=== PATIENT | male | born 1945 | race Caucasian/White ===

== ENCOUNTER 2022-12-09 04:18 | Inpatient (IN) | payer MEDICARE ==
[~2022-12-09] VITALS: Ht 165.1 cm; Wt 81.3 kg
[2022-12-09] MEDS ORDERED: NITROGLYCERIN 50 MG/D5% WATER 250 ML IV PRN (04:30)
[2022-12-09] MEDS ORDERED: DEXAMETHASONE SOD PHOS 4 MG/ML VIAL IVP ONE (04:30)
[2022-12-09] MEDS: IPRATROPIUM BROMIDE 0.5 MG/2.5 ML NEB SOLUTION NEB ONE ×2 (04:37→04:51)
[2022-12-09] MEDS: ALBUTEROL SULFATE 2.5 MG/0.5 ML NEB SOLUTION NEB ONE ×2 (04:37→04:52)
[2022-12-09] MEDS ORDERED: FUROSEMIDE 20 MG/2 ML VIAL IVP ONE (04:45)
[2022-12-09] MEDS ORDERED: IPRATROPIUM BROMIDE 0.5 MG/2.5 ML NEB SOLUTION NEB ONE (05:00)
[2022-12-09] MEDS ORDERED: ALBUTEROL SULFATE 2.5 MG/0.5 ML NEB SOLUTION NEB ONE (05:00)
[2022-12-09 05:05] LABS: CREATININE 1.42 mg/dL (0.60-1.30); POTASSIUM 3.5 mmol/L (3.5-5.1)
[2022-12-09 05:07] LABS: BASOPHILS % (AUTO) 0.7 % (0.0-2.0); EOSINOPHILS % (AUTO) 1.8 % (1.0-6.0); HEMATOCRIT 41.9 % (41-53); HEMOGLOBIN 13.5 g/dL (13.5-17.5); LYMPHOCYTES # (AUTO) 12.6 K/uL (1.0-4.8); LYMPHOCYTES % (AUTO) 59.1 % (22.0-44.0); MEAN CORPUSCULAR HEMOGLOBIN 27.4 pg (26.0-34.0); MEAN CORPUSCULAR HGB CONC 32.3 G/dL (31.0-37.0); MEAN CORPUSCULAR VOLUME 85 fL (80-100); MONOCYTES # (AUTO) 1.1 K/uL (0.1-1.0); NEUTROPHILS # (AUTO) 7.1 K/uL (1.8-7.7); NEUTROPHILS % (AUTO) 33.4 % (40.0-70.0); PLATELET COUNT (AUTO) 216 K/uL (150-450); RED BLOOD CELL COUNT(AUTO) 4.93 MIL/uL (4.50-5.90); RED CELL DISTRIBUTION WIDTH 17.1 % (11.5-14.5)
[2022-12-09 05:10] LABS: INR 1.1 (0.9-1.1); PROTHROMBIN TIME 11.4 SEC (9.4-11.6)
[2022-12-09 05:11] LABS: ALBUMIN 3.8 g/dL (3.4-5.0); BILIRUBIN,TOTAL 0.2 mg/dL (0.1-1.0); MAGNESIUM 1.9 mg/dL (1.80-2.40); PHOSPHORUS 5.2 mg/dL (2.5-4.9); TOTAL PROTEIN, SERUM 7.8 g/dL (6.4-8.2)
[2022-12-09 05:21] LABS: COVID AG,FIA SOURCE NASOPHARYNGEAL
[2022-12-09 05:43] LABS: INFLUENZA TYPE A NEGATIVE FOR TYPE A (NEGATIVE); INFLUENZA TYPE B NEGATIVE FOR TYPE B (NEGATIVE)
[2022-12-09] MEDS ORDERED: ACETAMINOPHEN 325 MG TABLET PO PRN ×3 (05:45→09:00)
[2022-12-09] MEDS ORDERED: ONDANSETRON HCL 4 MG/2 ML VIAL IVP PRN ×3 (05:45→09:00)
[2022-12-09] MEDS ORDERED: 0.9% SODIUM CHLORIDE 10 ML SYRINGE IVP PRN (05:45)
[2022-12-09 07:36] LABS: ABG BASE EXCESS -6.7 mmol/L (-2.0-3.0); ABG CARBOXYHEMOGLOBIN 0.1 % (0.0-1.5); ABG HCO3 19.7 mmol/L (22.0-26.0); ABG METHEMOGLOBIN 0.2 % (0.0-1.5); ABG OXYGEN CONTENT 18.4 mL/dL (15.0-23.0); ABG OXYGEN SATURATION 96.7 % (95.0-98.0); ABG OXYHEMOGLOBIN 96.4 % (94.0-100.0); ABG PCO2 34 mmHg (35-45); ABG PH 7.358 (7.35-7.450); ABG TOTAL HEMOGLOBIN 13.5 G/dL (12.0-18.0); PO2, ARTERIAL BG 94.9 mmHg (75.0-83.0); SITE, BLOOD GAS RT BRACHIAL; SOURCE, BLOOD GAS ARTERIAL; TEMPERATURE, FAHRENHEIT, BG 97.7 FAHREN (96.0-98.6)
[2022-12-09 07:37] LABS: O2 DEVICE,BLOOD GAS BIPAP (ROOM AIR); SPONTANEOUS VT, BG 805 ml
[2022-12-09] MEDS ORDERED: ALBUTEROL SULFATE 2.5 MG/0.5 ML NEB SOLUTION NEB PRN (09:00)
[2022-12-09] MEDS ORDERED: FAMOTIDINE 20 MG TABLET PO SCH (09:00)
[2022-12-09] MEDS ORDERED: DOCUSATE SODIUM 100 MG CAPSULE PO SCH (09:00)
[2022-12-09] MEDS ORDERED: DEXTROSE 50%-WATER 25 GM/50 ML SYRINGE IVP PRN (09:00)
[2022-12-09] MEDS: ASPIRIN 81 MG CHEWABLE TABLET PO SCH (09:39)
[2022-12-09] MEDS: FAMOTIDINE 20 MG TABLET PO SCH (09:40)
[2022-12-09] MEDS: DOCUSATE SODIUM 100 MG CAPSULE PO SCH ×2 (09:40→20:59)
[2022-12-09 10:21] LABS: APPEARANCE,URINE CLEAR (CLEAR); BILIRUBIN,URINE NEGATIVE (NEGATIVE); GLUCOSE, URINE (UA) NEGATIVE (NEGATIVE); KETONES,URINE NEGATIVE (NEGATIVE); LEUKOCYTE ESTERASE ,URINE NEGATIVE (NEGATIVE); NITRATE,URINE NEGATIVE (NEGATIVE); OCCULT BLOOD,URINE NEGATIVE (NEGATIVE); PROTEIN,URINE NEGATIVE (NEGATIVE); SPECIFIC GRAVITIY, URINE 1.009 (1.003-1.030); UROBILINOGEN,URINE <=1.0 mg/dL (<=1.0)
[2022-12-09] MEDS ORDERED: *CLINICAL-LEVOFLOXACIN IVPB DOSING CLINICAL ONE (12:00)
[2022-12-09] MEDS ORDERED: HEPARIN SODIUM,PORCINE 5,000 UNITS/ML VIAL IVP PRN ×2 (12:30)
[2022-12-09] MEDS ORDERED: HEPARIN SODIUM,PORCINE 5,000 UNITS/ML VIAL IVP ONE (12:45)
[2022-12-09] MEDS ORDERED: LEVOFLOXACIN 750 MG/D5% WATER 150 ML IV ONE (13:00)
[2022-12-09 13:16] VITALS: BP 140/89
[2022-12-09 14:46] LABS: PROTHROMBIN TIME 10.9 SEC (9.4-11.6)
[2022-12-09] MEDS: METOPROLOL SUCCINATE 25 MG ER TABLET PO SCH ×2 (14:53→20:56)
[2022-12-09 14:57] VITALS: BP 144/89
[2022-12-09] MEDS: HEPARIN SODIUM 25000 UNITS/D5W 250 ML IV PRN ×2 (15:19→23:07)
[2022-12-09] MEDS ORDERED: HEPARIN SODIUM,PORCINE 5,000 UNITS/ML VIAL SQ SCH ×2 (16:00)
[2022-12-09] MEDS: INSULIN LISPRO 100 UNITS/ML SQ PRN (17:27)
[2022-12-09 20:07] VITALS: BP 120/85
[2022-12-09] MEDS: FUROSEMIDE 20 MG/2 ML VIAL IVP SCH (20:59)
[2022-12-09] MEDS: ATORVASTATIN CALCIUM 40 MG TABLET PO SCH (20:59)
[2022-12-10] VITALS (7 sets, daily range): BP systolic 101–133; BP diastolic 50–81
[2022-12-10 05:17] LABS: GLUCOMETER DEV NAME(LOC) 5N.1C; GLUCOSE,POINT OF CARE 228 MG/DL (70-110)
[2022-12-10 06:21] LABS: BASOPHILS % (AUTO) 1.1 % (0.0-2.0); EOSINOPHILS % (AUTO) 1.4 % (1.0-6.0); HEMATOCRIT 36.6 % (41-53); HEMOGLOBIN 12.2 g/dL (13.5-17.5); LYMPHOCYTES # (AUTO) 3.7 K/uL (1.0-4.8); LYMPHOCYTES % (AUTO) 35.3 % (22.0-44.0); MEAN CORPUSCULAR HGB CONC 33.3 G/dL (31.0-37.0); MEAN CORPUSCULAR VOLUME 84 fL (80-100); MONOCYTES # (AUTO) 0.7 K/uL (0.1-1.0); MONOCYTES % (AUTO) 6.5 % (2.0-9.0); NEUTROPHILS # (AUTO) 5.9 K/uL (1.8-7.7); NEUTROPHILS % (AUTO) 55.7 % (40.0-70.0); PLATELET COUNT (AUTO) 152 K/uL (150-450); RED BLOOD CELL COUNT(AUTO) 4.36 MIL/uL (4.50-5.90); RED CELL DISTRIBUTION WIDTH 16.8 % (11.5-14.5)
[2022-12-10 06:39] LABS: ALBUMIN 3.1 g/dL (3.4-5.0); BILIRUBIN,TOTAL 0.2 mg/dL (0.1-1.0); CALCIUM, TOTAL 9.1 mg/dL (8.8-10.5); CREATININE 1.25 mg/dL (0.60-1.30); POTASSIUM 4.2 mmol/L (3.5-5.1); TOTAL PROTEIN, SERUM 6.9 g/dL (6.4-8.2)
[2022-12-10] MEDS ORDERED: NITROGLYCERIN 0.4 MG SUBLINGUAL TABLET #25 SL PRN (08:00)
[2022-12-10] MEDS: DOCUSATE SODIUM 100 MG CAPSULE PO SCH ×2 (08:31→20:45)
[2022-12-10] MEDS: ASPIRIN 81 MG CHEWABLE TABLET PO SCH (08:32)
[2022-12-10] MEDS: FAMOTIDINE 20 MG TABLET PO SCH (08:32)
[2022-12-10] MEDS: METOPROLOL SUCCINATE 25 MG ER TABLET PO SCH (08:32)
[2022-12-10] MEDS: FUROSEMIDE 20 MG/2 ML VIAL IVP SCH ×2 (08:32→20:45)
[2022-12-10 09:01] LABS: GLUCOMETER DEV NAME(LOC) 5S.1B; GLUCOSE,POINT OF CARE 130 MG/DL (70-110)
[2022-12-10] MEDS: HEPARIN SODIUM 25000 UNITS/D5W 250 ML IV PRN (11:28)
[2022-12-10] MEDS: ATORVASTATIN CALCIUM 40 MG TABLET PO SCH (20:44)
[2022-12-10] MEDS: INSULIN LISPRO 100 UNITS/ML SQ PRN (20:45)
[2022-12-11] VITALS (7 sets, daily range): BP systolic 98–111; BP diastolic 55–68
[2022-12-11] MEDS: HEPARIN SODIUM 25000 UNITS/D5W 250 ML IV PRN (04:39)
[2022-12-11 08:18] LABS: CHOL/HDL RATIO 3.3 (4.2-7.3)
[2022-12-11] MEDS: METOPROLOL SUCCINATE 25 MG ER TABLET PO SCH (08:18)
[2022-12-11] MEDS: DOCUSATE SODIUM 100 MG CAPSULE PO SCH ×2 (08:18→20:19)
[2022-12-11] MEDS: ASPIRIN 81 MG CHEWABLE TABLET PO SCH (08:18)
[2022-12-11] MEDS: FAMOTIDINE 20 MG TABLET PO SCH (08:18)
[2022-12-11] MEDS: FUROSEMIDE 20 MG/2 ML VIAL IVP SCH ×2 (08:19→20:19)
[2022-12-11] MEDS: INSULIN LISPRO 100 UNITS/ML SQ PRN ×3 (12:18→20:20)
[2022-12-11] MEDS ORDERED: LEVOFLOXACIN 750 MG/D5% WATER 150 ML IV SCH (13:00)
[2022-12-11] MEDS: ATORVASTATIN CALCIUM 40 MG TABLET PO SCH (20:19)
[2022-12-11 22:21] LABS: GLUCOMETER DEV NAME(LOC) 5S.1B; GLUCOSE,POINT OF CARE 132 MG/DL (70-110)
[2022-12-11 22:21] LABS: GLUCOMETER DEV NAME(LOC) 5S.1B; GLUCOSE,POINT OF CARE 137 MG/DL (70-110)
[2022-12-11 22:21] LABS: GLUCOMETER DEV NAME(LOC) 5S.1B; GLUCOSE,POINT OF CARE 183 MG/DL (70-110)
[2022-12-11 22:21] LABS: GLUCOMETER DEV NAME(LOC) 5S.1B; GLUCOSE,POINT OF CARE 152 MG/DL (70-110)
[2022-12-11 22:21] LABS: GLUCOMETER DEV NAME(LOC) 5S.1B; GLUCOSE,POINT OF CARE 195 MG/DL (70-110)
[2022-12-11 22:21] LABS: GLUCOMETER DEV NAME(LOC) 5S.1B; GLUCOSE,POINT OF CARE 157 MG/DL (70-110)
[2022-12-11 22:21] LABS: GLUCOMETER DEV NAME(LOC) 5S.1B; GLUCOSE,POINT OF CARE 219 MG/DL (70-110)
[2022-12-12] VITALS (13 sets, daily range): BP systolic 102–154; BP diastolic 52–102
[2022-12-12] MEDS: INSULIN LISPRO 100 UNITS/ML SQ PRN ×2 (06:00→18:00)
[2022-12-12 06:18] LABS: BASOPHILS % (AUTO) 0.8 % (0.0-2.0); EOSINOPHILS % (AUTO) 1.5 % (1.0-6.0); HEMATOCRIT 38.4 % (41-53); HEMOGLOBIN 12.7 g/dL (13.5-17.5); LYMPHOCYTES # (AUTO) 3.3 K/uL (1.0-4.8); LYMPHOCYTES % (AUTO) 31.4 % (22.0-44.0); MEAN CORPUSCULAR HEMOGLOBIN 27.4 pg (26.0-34.0); MEAN CORPUSCULAR HGB CONC 33.2 G/dL (31.0-37.0); MEAN CORPUSCULAR VOLUME 83 fL (80-100); MONOCYTES # (AUTO) 0.7 K/uL (0.1-1.0); MONOCYTES % (AUTO) 6.8 % (2.0-9.0); NEUTROPHILS # (AUTO) 6.3 K/uL (1.8-7.7); NEUTROPHILS % (AUTO) 59.5 % (40.0-70.0); PLATELET COUNT (AUTO) 163 K/uL (150-450); RED BLOOD CELL COUNT(AUTO) 4.65 MIL/uL (4.50-5.90); RED CELL DISTRIBUTION WIDTH 17.2 % (11.5-14.5)
[2022-12-12 06:54] LABS: CALCIUM, TOTAL 8.6 mg/dL (8.8-10.5); CREATININE 1.96 mg/dL (0.60-1.30)
[2022-12-12] MEDS ORDERED: IOHEXOL 300 MG/ML 100 ML VIAL ONE (08:08)
[2022-12-12] MEDS ORDERED: IOHEXOL 300 MG/ML 50 ML VIAL ONE ×2 (08:08→09:25)
[2022-12-12] MEDS ORDERED: SODIUM BICARBONATE 50 MEQ/50 ML VIAL ONE (08:08)
[2022-12-12] MEDS ORDERED: HEPARIN SODIUM 1000 UNITS/NS 1,000 ML ONE (08:08)
[2022-12-12] MEDS ORDERED: LIDOCAINE/PF 1% 30 ML VIAL ONE (08:08)
[2022-12-12] MEDS: FAMOTIDINE 20 MG TABLET PO SCH (08:27)
[2022-12-12] MEDS: DOCUSATE SODIUM 100 MG CAPSULE PO SCH ×2 (08:27→20:04)
[2022-12-12] MEDS: METOPROLOL SUCCINATE 25 MG ER TABLET PO SCH (08:27)
[2022-12-12] MEDS: FUROSEMIDE 20 MG/2 ML VIAL IVP SCH ×2 (08:27→20:04)
[2022-12-12] MEDS: ASPIRIN 81 MG CHEWABLE TABLET PO SCH (08:27)
[2022-12-12] MEDS ORDERED: FentaNYL CITRATE PF 100 MCG/2 ML VIAL ONE (08:56)
[2022-12-12] MEDS ORDERED: MIDAZOLAM HCL 2 MG/2 ML VIAL ONE (08:56)
[2022-12-12] MEDS ORDERED: LIDOCAINE 1% 30 ML/SOD BICARB 8.4% 4 ML SQ ONE (09:30)
[2022-12-12] MEDS ORDERED: HEPARIN SODIUM 1000 UNITS/NS 1,000 ML IARTER ONE (09:30)
[2022-12-12] MEDS ORDERED: IOHEXOL 300 MG/ML 100 ML VIAL IARTER ONE (09:30)
[2022-12-12] MEDS ORDERED: HEPARIN SODIUM,PORCINE 1,000 UNITS/ML 10 ML VIAL IVP ONE (09:30)
[2022-12-12] MEDS ORDERED: ADENOSINE 3 MG/ML 2 ML VIAL ONE (09:32)
[2022-12-12] MEDS ORDERED: SODIUM CHLORIDE 0.9% 500 ML IV ONE (09:45)
[2022-12-12] MEDS ORDERED: SODIUM CHLORIDE 0.9% 1,000 ML IV SCH (10:15)
[2022-12-12 17:01] LABS: GLUCOMETER DEV NAME(LOC) 5S.1B; GLUCOSE,POINT OF CARE 172 MG/DL (70-110)
[2022-12-12 17:01] LABS: GLUCOMETER DEV NAME(LOC) 5S.1B; GLUCOSE,POINT OF CARE 188 MG/DL (70-110)
[2022-12-12 17:01] LABS: GLUCOMETER DEV NAME(LOC) 5S.1B; GLUCOSE,POINT OF CARE 167 MG/DL (70-110)
[2022-12-12] MEDS: HEPARIN SODIUM,PORCINE 5,000 UNITS/ML VIAL SQ SCH ×2 (17:58→23:21)
[2022-12-12] MEDS: ATORVASTATIN CALCIUM 40 MG TABLET PO SCH (20:04)
[2022-12-12 20:51] LABS: GLUCOMETER DEV NAME(LOC) 5S.1B; GLUCOSE,POINT OF CARE 214 MG/DL (70-110)
[2022-12-13 00:22] VITALS: BP 125/74
[2022-12-13 03:06] LABS: HEPATITIS C AB (EIA) Non Reactive (Non Reactive)
[2022-12-13 03:54] VITALS: BP 130/79
[2022-12-13 07:05] VITALS: BP 133/80
[2022-12-13] MEDS: FUROSEMIDE 20 MG/2 ML VIAL IVP SCH (08:25)
[2022-12-13] MEDS: ASPIRIN 81 MG CHEWABLE TABLET PO SCH (08:25)
[2022-12-13] MEDS: DOCUSATE SODIUM 100 MG CAPSULE PO SCH (08:25)
[2022-12-13] MEDS: HEPARIN SODIUM,PORCINE 5,000 UNITS/ML VIAL SQ SCH (08:25)
[2022-12-13] MEDS: METOPROLOL SUCCINATE 25 MG ER TABLET PO SCH (08:26)
[2022-12-13] MEDS: FAMOTIDINE 20 MG TABLET PO SCH (08:26)
[2022-12-13 09:49] LABS: BASOPHILS % (AUTO) 0.4 % (0.0-2.0); EOSINOPHILS % (AUTO) 0.8 % (1.0-6.0); HEMATOCRIT 37.4 % (41-53); HEMOGLOBIN 12.2 g/dL (13.5-17.5); LYMPHOCYTES # (AUTO) 2.5 K/uL (1.0-4.8); LYMPHOCYTES % (AUTO) 22.2 % (22.0-44.0); MEAN CORPUSCULAR HEMOGLOBIN 27.1 pg (26.0-34.0); MEAN CORPUSCULAR HGB CONC 32.7 G/dL (31.0-37.0); MEAN CORPUSCULAR VOLUME 83 fL (80-100); MONOCYTES # (AUTO) 0.8 K/uL (0.1-1.0); MONOCYTES % (AUTO) 6.8 % (2.0-9.0); NEUTROPHILS # (AUTO) 7.7 K/uL (1.8-7.7); NEUTROPHILS % (AUTO) 69.8 % (40.0-70.0); PLATELET COUNT (AUTO) 180 K/uL (150-450); RED BLOOD CELL COUNT(AUTO) 4.52 MIL/uL (4.50-5.90); RED CELL DISTRIBUTION WIDTH 16.9 % (11.5-14.5)
[2022-12-13 09:57] LABS: CALCIUM, TOTAL 8.9 mg/dL (8.8-10.5); CREATININE 1.73 mg/dL (0.60-1.30); POTASSIUM 4.2 mmol/L (3.5-5.1)
[2022-12-13 10:03] LABS: ALBUMIN 3.4 g/dL (3.4-5.0); BILIRUBIN,TOTAL 0.3 mg/dL (0.1-1.0); TOTAL PROTEIN, SERUM 7.1 g/dL (6.4-8.2)
[2022-12-13 11:19] VITALS: BP 130/72
[2022-12-13] MEDS ORDERED: ASPI81 PO (11:25)
[2022-12-13] MEDS ORDERED: ATOR40TA71 PO (11:25)
[2022-12-13] MEDS ORDERED: METO25XL PO (11:25)
[2022-12-13] MEDS ORDERED: FURO20 PO ×2 (11:25→13:05)
[2022-12-13] MEDS: INSULIN LISPRO 100 UNITS/ML SQ PRN (12:14)
[2022-12-13 19:52] LABS: GLUCOMETER DEV NAME(LOC) 5S.1B; GLUCOSE,POINT OF CARE 224 MG/DL (70-110)
[2022-12-13 19:52] LABS: GLUCOMETER DEV NAME(LOC) 5S.1B; GLUCOSE,POINT OF CARE 250 MG/DL (70-110)
== END 2022-12-13 13:50 | disposition home or self-care (01) | DRG 280 ==
LOC: EMS 04:21 → 5N 10:47 → EDBD 10:47
PROVIDERS: ADMIT Hospitalist; ATTEND Hospitalist
PROC: 5A09357 Assistance with Respiratory Ventilation, Less than 24 Consecutive Hours, Continuous Positive Airway Pressure (ICD-10-PCS; principal; 2022-12-09)
PROC: 4A023N7 Measurement of Cardiac Sampling and Pressure, Left Heart, Percutaneous Approach (ICD-10-PCS; 2022-12-12)
PROC: B2111ZZ Fluoroscopy of Multiple Coronary Arteries using Low Osmolar Contrast (ICD-10-PCS; 2022-12-12)
DX: I11.0 Hypertensive heart disease with heart failure (principal); I50.23 Acute on chronic systolic (congestive) heart failure; I21.4 Non-ST elevation (NSTEMI) myocardial infarction; J96.01 Acute respiratory failure with hypoxia; N17.0 Acute kidney failure with tubular necrosis; I16.1 Hypertensive emergency; R65.10 Systemic inflammatory response syndrome (SIRS) of non-infectious origin without acute organ dysfunction; J44.9 Chronic obstructive pulmonary disease, unspecified; E78.5 Hyperlipidemia, unspecified; E11.9 Type 2 diabetes mellitus without complications; T50.8X5A Adverse effect of diagnostic agents, initial encounter; I25.10 Atherosclerotic heart disease of native coronary artery without angina pectoris; I25.5 Ischemic cardiomyopathy; D72.829 Elevated white blood cell count, unspecified; Z20.822 Contact with and (suspected) exposure to COVID-19; Z79.82 Long term (current) use of aspirin; Z79.899 Other long term (current) drug therapy; Z82.49 Family history of ischemic heart disease and other diseases of the circulatory system; Z87.891 Personal history of nicotine dependence; Z88.0 Allergy status to penicillin
CPT/HCPCS: 0501T; 36600; 71045; 80048; 80053; 80061; 81003; 82550; 82805; 82962; 83735; 83880; 84100; 84145; 84484; 85025; 85610; 85730; 86709; 86803; 87340; 87804; 93005; 93306; 94640; 94660; 99291; J0153; J1100; J1644; J1940; J1956; J2250; J3010; J3490; Q9967; 36415-L1; 36415-TC; J7613

== ENCOUNTER 2025-06-06 02:24 | Inpatient (IN) | payer MEDICARE ==
[~2025-06-06] VITALS: Ht 165.1 cm; Wt 91.7 kg
[2025-06-06] VITALS (10 sets, daily range): BP systolic 91–106; BP diastolic 25–48; PULSE 100–134; RESP 16–35; TEMP 98.3–103.9; O2SAT 84–96
[~2025-06-06 02:24] MED LIST: ASPI-1444 PO; DOCU-385 PO; DULA1.5P SQ; EMPA25TA3 PO; FURO20TA4 PO; LISI-1024 PO; METF-446 PO; NIFE-129 PO; OMEP20CA12 PO
[2025-06-06 02:52] LABS: PLATELET COUNT (AUTO) 195 K/uL (150-450); RED BLOOD CELL COUNT(AUTO) 5.23 MIL/uL (4.50-5.90); RED CELL DISTRIBUTION WIDTH 14.8 % (11.5-14.5); WHITE BLOOD COUNT (AUTO) 5.4 K/uL (4.5-11.0)
[2025-06-06 03:07] LABS: CALCIUM, TOTAL 8.5 mg/dL (8.8-10.5); CREATININE 2.42 mg/dL (0.60-1.30); GLOMERULAR FILTR. RATE CALC 26 mL/min (>60); GLUCOSE,RANDOM 279 mg/dL (70-110); SODIUM SERUM 134 mmol/L (136-145); UREA NITROGEN, BLOOD 44 mg/dL (7-18)
[2025-06-06] MEDS: SODIUM CHLORIDE 0.9% 1,000 ML IV ONE (03:16)
[2025-06-06 03:17] LABS: TROPONIN I-HIGH SENSITIVITY 46 ng/L (<76)
[2025-06-06 03:51] LABS: LACTIC ACID 5.5 mmol/L (0.4-2.0)
[2025-06-06] MEDS ORDERED: 0.9% SODIUM CHLORIDE 10 ML SYRINGE IVP PRN (04:00)
[2025-06-06] MEDS ORDERED: PIPERACILLIN/TAZO 3.375 GM/D5W 50 ML IV ONE (04:00)
[2025-06-06 04:13] LABS: ASPARTATE AMINOTRANSFERASE 21.0 U/L (15-37); CREATINE KINASE, TOTAL ONLY 206.0 U/L (39-308); TOTAL PROTEIN, SERUM 7.1 g/dL (6.4-8.2)
[2025-06-06] MEDS: SODIUM CHLORIDE 0.9% 1,650 ML IV ONE (04:13)
[2025-06-06] MEDS: CefTRIAXone 1 GM/DEXTROSE 50 ML IV ONE (04:23)
[2025-06-06] MEDS: MORPHINE SULFATE 2 MG/ML SYRINGE IVP ONE (07:26)
[2025-06-06 07:51] LABS: ABG A-A DIFF O2 617.4 mmHg (10-20.0); ABG BASE EXCESS -3.7 mmol/L (-2.0-3.0); ABG CARBOXYHEMOGLOBIN 1.2 % (0.5-1.5); ABG HCO3 22.5 mmol/L (21.0-28.0); ABG METHEMOGLOBIN 1.0 % (0.0-1.5); ABG OXYGEN CONTENT 18.2 mL/dL (15.0-23.0); ABG OXYGEN SATURATION 93.7 % (94.0-98.0); ABG OXYHEMOGLOBIN 91.6 % (94.0-98.0); ABG PCO2 28 mmHg (32.0-48.0); ABG PH 7.476 (7.350-7.450); ABG TOTAL HEMOGLOBIN 14.1 G/dL (13.5-17.5); ALLEN TEST, BLOOD GAS Positive; FLOW, BLOOD GAS 15.00 L/min (0.00-15.00); FRACTIONATED INSPIRED OXYGEN 100.0 % (21-100.0); O2 DEVICE,BLOOD GAS NON REBREATHER (ROOM AIR); PO2, ARTERIAL BG 68.1 mmHg (83.0-108.0); SITE, BLOOD GAS RT RADIAL; SOURCE, BLOOD GAS ARTERIAL; TEMPERATURE, FAHRENHEIT, BG 98.6 FAHREN (96.0-98.6)
[2025-06-06] MEDS ORDERED: SODIUM CHLORIDE 0.9% 500 ML IV ONE (07:58)
[2025-06-06] MEDS ORDERED: NOREPINEPHRINE 8 MG/0.9 % NACL 250 ML IV ONE (07:58)
[2025-06-06] MEDS: SODIUM CHLORIDE 0.9% 500 ML IV ONE (08:05)
[2025-06-06 08:18] LABS: CALCIUM, TOTAL 8.2 mg/dL (8.8-10.5); CREATININE 3.18 mg/dL (0.60-1.30); GLOMERULAR FILTR. RATE CALC 19.0 mL/min (>60); GLUCOSE,RANDOM 281.0 mg/dL (70-110); SODIUM SERUM 133.0 mmol/L (136-145); UREA NITROGEN, BLOOD 50.0 mg/dL (7-18)
[2025-06-06] MEDS: NOREPINEPHRINE 8 MG/0.9 % NACL 250 ML IV PRN (08:23)
[2025-06-06] MEDS: VANCOMYCIN 1.25 GM/WATER(PEG) 250 ML IV ONE (09:00)
[2025-06-06] MEDS ORDERED: ETOMIDATE 2 MG/ML 10 ML VIAL ONE (09:43)
[2025-06-06] MEDS ORDERED: ROCURONIUM BROMIDE 10 MG/ML 5 ML VIAL ONE (09:43)
[2025-06-06 10:35] LABS: APPEARANCE,URINE HAZY (CLEAR); GLUCOSE, URINE (UA) >=1000 mg/dL (NEGATIVE); LEUKOCYTE ESTERASE ,URINE SMALL (NEGATIVE); NITRATE,URINE NEGATIVE (NEGATIVE); OCCULT BLOOD,URINE NEGATIVE (NEGATIVE); SPECIFIC GRAVITIY, URINE 1.021 (1.003-1.030)
[2025-06-06 10:43] LABS: SQUAMOUS EPITHELIAL CELL,UR Moderate /LPF (None Seen)
[2025-06-06] MEDS ORDERED: BISACODYL 10 MG RECTAL RECTAL SUPPOSITORY PR PRN (11:00)
[2025-06-06] MEDS ORDERED: HYDROCODONE/ACETAMINOPHEN 5-325 MG TABLET PO PRN (11:00)
[2025-06-06] MEDS ORDERED: ONDANSETRON HCL 4 MG/2 ML VIAL IVP PRN (11:00)
[2025-06-06] MEDS ORDERED: ZOLPIDEM TARTRATE 5 MG TABLET PO PRN (11:00)
[2025-06-06] MEDS ORDERED: MORPHINE SULFATE 2 MG/ML SYRINGE IVP PRN (11:00)
[2025-06-06] MEDS ORDERED: MAGNESIUM HYDROXIDE SUSPENSION 30 ML UDCUP PO PRN (11:00)
[2025-06-06] MEDS: *CLINICAL-LEVOFLOXACIN IVPB DOSING CLINICAL ONE (11:17)
[2025-06-06] MEDS: KETAMINE HCL 500 MG in DEXTROSE 5%-WATER 490 ML IV PRN (11:21)
[2025-06-06] MEDS: MINERAL OIL 133 ML ENEMA PR ONE (12:24)
[2025-06-06] MEDS: RINGERS SOLUTION,LACTATED 1,000 ML IV ONE (12:27)
[2025-06-06] MEDS: CLINDAMYCIN 600 MG/D5% WATER 50 ML IV SCH (12:28)
[2025-06-06 13:08] LABS: ABG BASE EXCESS -4.4 mmol/L (-2.0-3.0); ABG CARBOXYHEMOGLOBIN 0.6 % (0.5-1.5); ABG HCO3 20.1 mmol/L (21.0-28.0); ABG METHEMOGLOBIN 0.2 % (0.0-1.5); ABG OXYGEN CONTENT 18.6 mL/dL (15.0-23.0); ABG OXYGEN SATURATION 92.5 % (94.0-98.0); ABG OXYHEMOGLOBIN 91.8 % (94.0-98.0); ABG PCO2 58 mmHg (32.0-48.0); ABG TOTAL HEMOGLOBIN 14.4 G/dL (13.5-17.5); FRACTIONATED INSPIRED OXYGEN 100.0 % (21-100.0); PO2, ARTERIAL BG 78.3 mmHg (83.0-108.0); SOURCE, BLOOD GAS ARTERIAL; TEMPERATURE, FAHRENHEIT, BG 98.6 FAHREN (96.0-98.6)
[2025-06-06 13:11] LABS: ABG A-A DIFF O2 576.8 mmHg (10-20.0); ABG PH 7.222 (7.350-7.450); ALLEN TEST, BLOOD GAS Positive; O2 DEVICE,BLOOD GAS VENTILATOR (ROOM AIR); PATIENT RATE, BG 16.0 min.; PEEP,BG 8 cm H2O; SET RATE, BG 16.0 min.; SITE, BLOOD GAS RT RADIAL; VT, ABG 500 ml
[2025-06-06] MEDS: LEVOFLOXACIN 500 MG/D5% WATER 100 ML IV ONE (14:18)
[2025-06-06] MEDS ORDERED: DEXTROSE 50%-WATER 25 GM/50 ML SYRINGE IVP PRN (14:30)
[2025-06-06] MEDS ORDERED: PROPOFOL 1000 MG/ISO-OSM 100 ML ONE (14:37)
[2025-06-06] MEDS: INSULIN LISPRO 100 UNITS/ML SQ PRN (14:41)
[2025-06-06 16:21] LABS: ABG BASE EXCESS -7.4 mmol/L (-2.0-3.0); ABG CARBOXYHEMOGLOBIN 0.4 % (0.5-1.5); ABG HCO3 19.0 mmol/L (21.0-28.0); ABG METHEMOGLOBIN 0.2 % (0.0-1.5); ABG OXYGEN CONTENT 17.3 mL/dL (15.0-23.0); ABG OXYGEN SATURATION 88.1 % (94.0-98.0); ABG OXYHEMOGLOBIN 87.6 % (94.0-98.0); ABG PCO2 35 mmHg (32.0-48.0); ABG PH 7.340 (7.350-7.450); ABG TOTAL HEMOGLOBIN 14.1 G/dL (13.5-17.5); FRACTIONATED INSPIRED OXYGEN 100.0 % (21-100.0); PO2, ARTERIAL BG 57.2 mmHg (83.0-108.0); SOURCE, BLOOD GAS ARTERIAL; TEMPERATURE, FAHRENHEIT, BG 98.6 FAHREN (96.0-98.6)
[2025-06-06 16:22] LABS: ABG A-A DIFF O2 621.0 mmHg (10-20.0); O2 DEVICE,BLOOD GAS VENTILATOR (ROOM AIR); PATIENT RATE, BG 34.0 min.; PEEP,BG 8 cm H2O; SET RATE, BG 26.0 min.; SITE, BLOOD GAS LFT BRACHIAL; VT, ABG 520 ml
[2025-06-06] MEDS: HEPARIN SODIUM,PORCINE 5,000 UNITS/ML VIAL SQ SCH (16:23)
[2025-06-06] MEDS: PHENYLEPHRINE 200 MG/D5%-WATER 250 ML IV PRN (17:27)
[2025-06-06 17:29] LABS: ABG BASE EXCESS -5.4 mmol/L (-2.0-3.0); ABG CARBOXYHEMOGLOBIN 0.5 % (0.5-1.5); ABG HCO3 20.7 mmol/L (21.0-28.0); ABG METHEMOGLOBIN 0.2 % (0.0-1.5); ABG OXYGEN CONTENT 15.9 mL/dL (15.0-23.0); ABG OXYHEMOGLOBIN 83.8 % (94.0-98.0); ABG PCO2 31 mmHg (32.0-48.0); ABG PH 7.412 (7.350-7.450); ABG TOTAL HEMOGLOBIN 13.5 G/dL (13.5-17.5); FRACTIONATED INSPIRED OXYGEN 100.0 % (21-100.0); SOURCE, BLOOD GAS ARTERIAL; TEMPERATURE, FAHRENHEIT, BG 98.6 FAHREN (96.0-98.6)
[2025-06-06 17:31] LABS: ABG OXYGEN SATURATION 84.4 % (94.0-98.0); PO2, ARTERIAL BG 47.5 mmHg (83.0-108.0); SITE, BLOOD GAS ARTERIAL LINE
[2025-06-06 17:32] LABS: ABG A-A DIFF O2 634.6 mmHg (10-20.0); O2 DEVICE,BLOOD GAS VENTILATOR (ROOM AIR); PATIENT RATE, BG 26.0 min.; PEEP,BG 8 cm H2O; SET RATE, BG 26.0 min.; VT, ABG 520 ml
[2025-06-06 18:44] LABS: CALCIUM, TOTAL 7.7 mg/dL (8.8-10.5); CREATININE 3.79 mg/dL (0.60-1.30); GLOMERULAR FILTR. RATE CALC 15.0 mL/min (>60); GLUCOSE,RANDOM 241.0 mg/dL (70-110); SODIUM SERUM 135.0 mmol/L (136-145); UREA NITROGEN, BLOOD 57.0 mg/dL (7-18)
[2025-06-06 18:48] LABS: PHOSPHORUS 4.4 mg/dL (2.5-4.9)
[2025-06-06] MEDS: PROPOFOL 1000 MG/ISO-OSM 100 ML IV PRN (19:52)
[2025-06-06] MEDS: FentaNYL CIT 1000MCG/0.9% NACL 100 ML IV PRN (19:53)
[2025-06-06 20:07] LABS: ABG BASE EXCESS -5.0 mmol/L (-2.0-3.0); ABG CARBOXYHEMOGLOBIN 0.7 % (0.5-1.5); ABG HCO3 21.0 mmol/L (21.0-28.0); ABG METHEMOGLOBIN 1.2 % (0.0-1.5); ABG OXYGEN CONTENT 18.5 mL/dL (15.0-23.0); ABG OXYGEN SATURATION 92.0 % (94.0-98.0); ABG OXYHEMOGLOBIN 90.3 % (94.0-98.0); ABG PCO2 38 mmHg (32.0-48.0); ABG PH 7.352 (7.350-7.450); ABG TOTAL HEMOGLOBIN 14.6 G/dL (13.5-17.5); FRACTIONATED INSPIRED OXYGEN 100.0 % (21-100.0); PO2, ARTERIAL BG 74.5 mmHg (83.0-108.0); SOURCE, BLOOD GAS ARTERIAL; TEMPERATURE, FAHRENHEIT, BG 103.9 FAHREN (96.0-98.6)
[2025-06-06 20:08] LABS: ABG A-A DIFF O2 529.3 mmHg (10-20.0); O2 DEVICE,BLOOD GAS VENT (ROOM AIR); PEEP,BG 10 cm H2O; SET RATE, BG 26.0 min.; SITE, BLOOD GAS ARTERIAL LINE; VT, ABG 520 ml
[2025-06-06] MEDS ORDERED: SODIUM CHLORIDE 0.9% 2,000 ML ONE (20:26)
[2025-06-06] MEDS: DOCUSATE SODIUM 100 MG CAPSULE PO SCH (20:43)
[2025-06-06] MEDS: ACETAMINOPHEN 325 MG TABLET PO PRN (21:34)
[2025-06-06] MEDS: VASOPRESSIN 40 UNITS in DEXTROSE 5%-WATER 98 ML IV PRN (21:35)
[2025-06-07] VITALS (16 sets, daily range): BP systolic 92–134; BP diastolic 42–59; PULSE 77–111; RESP 21–26; TEMP 97.1–101.7; O2SAT 90–98
[2025-06-07] MEDS ORDERED: VANCOMYCIN 1GM/WATER(PEG/NADA) 200 ML IV PRN (01:45)
[2025-06-07] MEDS ORDERED: SODIUM CHLORIDE 0.9% 2,000 ML ONE (03:22)
[2025-06-07] MEDS: POTASSIUM CHLORIDE 20 MEQ in NXSTAGE RFP-402 K0/CA3 5,000 ML IRRIG PRN (03:45)
[2025-06-07 06:35] LABS: RED BLOOD CELL COUNT(AUTO) 4.54 MIL/uL (4.50-5.90); RED CELL DISTRIBUTION WIDTH 15.0 % (11.5-14.5); WHITE BLOOD COUNT (AUTO) 14.5 K/uL (4.5-11.0)
[2025-06-07 06:41] LABS: GLUCOMETER DEV NAME(LOC) ICUN.6; GLUCOSE,POINT OF CARE 195 MG/DL (70-110)
[2025-06-07 06:52] LABS: ASPARTATE AMINOTRANSFERASE 51.0 U/L (15-37); CALCIUM, TOTAL 7.6 mg/dL (8.8-10.5); CREATININE 3.41 mg/dL (0.60-1.30); GLOMERULAR FILTR. RATE CALC 17.0 mL/min (>60); GLUCOSE,RANDOM 214.0 mg/dL (70-110); SODIUM SERUM 136.0 mmol/L (136-145); TOTAL PROTEIN, SERUM 5.5 g/dL (6.4-8.2); UREA NITROGEN, BLOOD 51.0 mg/dL (7-18)
[2025-06-07 07:50] LABS: PLATELET COUNT (AUTO) 98 K/uL (150-450)
[2025-06-07 07:50] LABS: GLUCOMETER DEV NAME(LOC) ICU.S7; GLUCOSE,POINT OF CARE 261 MG/DL (70-110)
[2025-06-07 07:59] LABS: BAND NEUTROPHILS % (MANUAL) 12 % (0-5); LYMPHOCYTES % (MANUAL) 5 % (22-44); METAMYELOCYTES % 10 % (0-0); MONOCYTES % (MANUAL) 1 % (2-9); MYELOCYTES % 6 % (0-0); SEGMENTED NEUTROPHILS % 66 % (40-70); WBC MORPHOLOGY TOXIC GRANULATION
[2025-06-07] MEDS ORDERED: PANTOPRAZOLE SODIUM 40 MG DR TABLET PO SCH (09:00)
[2025-06-07 09:56] LABS: GLUCOMETER DEV NAME(LOC) ICUN.6; GLUCOSE,POINT OF CARE 207 MG/DL (70-110)
[2025-06-07] MEDS: HEPARIN SODIUM,PORCINE 1,000 UNITS/ML VIAL IVCATH ONE (11:45)
[2025-06-07] MEDS ORDERED: SODIUM CHLORIDE 0.9% 1,000 ML ONE (11:47)
[2025-06-07] MEDS: VANCOMYCIN 1.5 GM/WATER(PEG) 300 ML IV ONE (11:51)
[2025-06-07] MEDS: PANTOPRAZOLE SODIUM 40 MG/VIAL IVP SCH (11:51)
[2025-06-07 12:54] LABS: ABG BASE EXCESS -9.9 mmol/L (-2.0-3.0); ABG CARBOXYHEMOGLOBIN 0.4 % (0.5-1.5); ABG HCO3 17.5 mmol/L (21.0-28.0); ABG METHEMOGLOBIN 0.3 % (0.0-1.5); ABG OXYGEN CONTENT 20.7 mL/dL (15.0-23.0); ABG OXYGEN SATURATION 97.8 % (94.0-98.0); ABG OXYHEMOGLOBIN 97.1 % (94.0-98.0); ABG PCO2 37 mmHg (32.0-48.0); ABG PH 7.276 (7.350-7.450); ABG TOTAL HEMOGLOBIN 15.1 G/dL (13.5-17.5); FRACTIONATED INSPIRED OXYGEN 100.0 % (21-100.0); PO2, ARTERIAL BG 116.8 mmHg (83.0-108.0); SOURCE, BLOOD GAS ARTERIAL; TEMPERATURE, FAHRENHEIT, BG 101.1 FAHREN (96.0-98.6)
[2025-06-07 12:56] LABS: SITE, BLOOD GAS ALINE
[2025-06-07 12:57] LABS: O2 DEVICE,BLOOD GAS VENTILATOR (ROOM AIR); PATIENT RATE, BG 26.0 min.; PEEP,BG 10 cm H2O; SET RATE, BG 26.0 min.; VT, ABG 520 ml
[2025-06-07] MEDS: HYDROCORTISONE SOD SUCC 100 MG/2 ML VIAL IVP SCH (15:04)
[2025-06-07] MEDS ORDERED: SODIUM CHLORIDE 0.9% 250 ML IV ONE (18:23)
[2025-06-07] MEDS: POTASSIUM CHLORIDE 15 MEQ in NXSTAGE RFP-402 K0/CA3 5,000 ML IRRIG PRN (18:27)
[2025-06-07 19:21] LABS: CALCIUM, TOTAL 7.0 mg/dL (8.8-10.5); CREATININE 2.76 mg/dL (0.60-1.30); GLOMERULAR FILTR. RATE CALC 22.0 mL/min (>60); GLUCOSE,RANDOM 211.0 mg/dL (70-110); SODIUM SERUM 133.0 mmol/L (136-145); UREA NITROGEN, BLOOD 47.0 mg/dL (7-18)
[2025-06-07 19:34] LABS: PHOSPHORUS 5.0 mg/dL (2.5-4.9)
[2025-06-07] MEDS: CISATRACURIUM BESYLATE 100 MG in DEXTROSE 5%-WATER 240 ML IV PRN (20:46)
[2025-06-07] MEDS: DOCUSATE SODIUM 100 MG/10 ML LIQUID UDCUP NG SCH (21:00)
[2025-06-08] VITALS (16 sets, daily range): BP systolic 10–146; BP diastolic 50–75; PULSE 48–102; RESP 21–26; TEMP 92–95.4; O2SAT 89–100
[2025-06-08] MEDS: ETHYL ALCOHOL 62% ANTISEPTIC NASAL SANITIZER 0.6 ML AMPUL NASAL SCH (00:34)
[2025-06-08 00:54] LABS: CALCIUM, TOTAL 7.9 mg/dL (8.8-10.5); CREATININE 2.26 mg/dL (0.60-1.30); GLOMERULAR FILTR. RATE CALC 28.0 mL/min (>60); GLUCOSE,RANDOM 208.0 mg/dL (70-110); SODIUM SERUM 135.0 mmol/L (136-145); UREA NITROGEN, BLOOD 42.0 mg/dL (7-18)
[2025-06-08 00:56] LABS: PHOSPHORUS 5.0 mg/dL (2.5-4.9)
[2025-06-08 05:14] LABS: RED BLOOD CELL COUNT(AUTO) 4.01 MIL/uL (4.50-5.90); RED CELL DISTRIBUTION WIDTH 15.2 % (11.5-14.5); WHITE BLOOD COUNT (AUTO) 23.1 K/uL (4.5-11.0)
[2025-06-08 05:19] LABS: PHOSPHORUS 4.7 mg/dL (2.5-4.9)
[2025-06-08 05:20] LABS: CALCIUM, TOTAL 7.9 mg/dL (8.8-10.5); CREATININE 2.02 mg/dL (0.60-1.30); GLOMERULAR FILTR. RATE CALC 32.0 mL/min (>60); GLUCOSE,RANDOM 200.0 mg/dL (70-110); SODIUM SERUM 135.0 mmol/L (136-145); UREA NITROGEN, BLOOD 38.0 mg/dL (7-18)
[2025-06-08 06:28] LABS: PLATELET COUNT (AUTO) 56 K/uL (150-450)
[2025-06-08 06:29] LABS: BAND NEUTROPHILS % (MANUAL) 15 % (0-5); LYMPHOCYTES % (MANUAL) 3 % (22-44); METAMYELOCYTES % 12 % (0-0); MONOCYTES % (MANUAL) 3 % (2-9); SEGMENTED NEUTROPHILS % 67 % (40-70)
[2025-06-08] MEDS: VANCOMYCIN 1.5 GM/WATER(PEG) 300 ML IV ONE (08:12)
[2025-06-08] MEDS: *CLINICAL-AZTREONAM DOSING CLINICAL ONE (11:27)
[2025-06-08] MEDS ORDERED: LEVOFLOXACIN 250 MG/D5% WATER 50 ML IV SCH (12:00)
[2025-06-08] MEDS: AZTREONAM 2 GM in DEXTROSE 5%-WATER 50 ML IV SCH (12:03)
[2025-06-08 12:28] LABS: CALCIUM, TOTAL 7.4 mg/dL (8.8-10.5); CREATININE 1.55 mg/dL (0.60-1.30); GLOMERULAR FILTR. RATE CALC 43.0 mL/min (>60); GLUCOSE,RANDOM 182.0 mg/dL (70-110); SODIUM SERUM 135.0 mmol/L (136-145); UREA NITROGEN, BLOOD 33.0 mg/dL (7-18)
[2025-06-08 12:33] LABS: PHOSPHORUS 4.5 mg/dL (2.5-4.9)
[2025-06-08 12:35] LABS: ABG BASE EXCESS -10.4 mmol/L (-2.0-3.0); ABG CARBOXYHEMOGLOBIN 0.3 % (0.5-1.5); ABG HCO3 17.0 mmol/L (21.0-28.0); ABG METHEMOGLOBIN 0.3 % (0.0-1.5); ABG OXYGEN CONTENT 17.0 mL/dL (15.0-23.0); ABG OXYGEN SATURATION 99.3 % (94.0-98.0); ABG OXYHEMOGLOBIN 98.7 % (94.0-98.0); ABG PCO2 28 mmHg (32.0-48.0); ABG PH 7.359 (7.350-7.450); ABG TOTAL HEMOGLOBIN 11.4 G/dL (13.5-17.5); FRACTIONATED INSPIRED OXYGEN 90.0 % (21-100.0); SOURCE, BLOOD GAS ARTERIAL; TEMPERATURE, FAHRENHEIT, BG 92.0 FAHREN (96.0-98.6)
[2025-06-08 12:36] LABS: O2 DEVICE,BLOOD GAS VENTILATOR (ROOM AIR); PATIENT RATE, BG 26.0 min.; PEEP,BG 10 cm H2O; PO2, ARTERIAL BG 406.2 mmHg (83.0-108.0); SET RATE, BG 26.0 min.; SITE, BLOOD GAS ARTERIAL LINE; SPONTANEOUS VT, BG 472 ml; VT, ABG 480 ml
[2025-06-08] MEDS: LEVOFLOXACIN 500 MG/D5% WATER 100 ML IV SCH (13:13)
[2025-06-08 13:40] LABS: GLUCOMETER DEV NAME(LOC) ICU.S7; GLUCOSE,POINT OF CARE 191 MG/DL (70-110)
[2025-06-08 13:40] LABS: GLUCOMETER DEV NAME(LOC) ICU.S7; GLUCOSE,POINT OF CARE 159 MG/DL (70-110)
[2025-06-08] MEDS: MetroNIDAZOLE 500 MG/NACL 100 ML IV SCH (15:23)
[2025-06-08 17:36] LABS: ABG BASE EXCESS -10.4 mmol/L (-2.0-3.0); ABG CARBOXYHEMOGLOBIN 0.3 % (0.5-1.5); ABG HCO3 16.8 mmol/L (21.0-28.0); ABG METHEMOGLOBIN 0.3 % (0.0-1.5); ABG OXYGEN CONTENT 16.6 mL/dL (15.0-23.0); ABG OXYGEN SATURATION 98.8 % (94.0-98.0); ABG OXYHEMOGLOBIN 98.2 % (94.0-98.0); ABG PCO2 33 mmHg (32.0-48.0); ABG PH 7.308 (7.350-7.450); ABG TOTAL HEMOGLOBIN 11.8 G/dL (13.5-17.5); FRACTIONATED INSPIRED OXYGEN 60.0 % (21-100.0); PO2, ARTERIAL BG 152.5 mmHg (83.0-108.0); SOURCE, BLOOD GAS ARTERIAL; TEMPERATURE, FAHRENHEIT, BG 93.1 FAHREN (96.0-98.6)
[2025-06-08 17:37] LABS: O2 DEVICE,BLOOD GAS VENTILATOR (ROOM AIR); PATIENT RATE, BG 26.0 min.; PEEP,BG 10 cm H2O; SET RATE, BG 26.0 min.; SITE, BLOOD GAS ARTERIAL LINE; SPONTANEOUS VT, BG 468 ml; VT, ABG 480 ml
[2025-06-08 18:49] LABS: CALCIUM, TOTAL 7.6 mg/dL (8.8-10.5); CREATININE 1.61 mg/dL (0.60-1.30); GLOMERULAR FILTR. RATE CALC 41.0 mL/min (>60); GLUCOSE,RANDOM 199.0 mg/dL (70-110); PHOSPHORUS 4.5 mg/dL (2.5-4.9); SODIUM SERUM 134.0 mmol/L (136-145); UREA NITROGEN, BLOOD 33.0 mg/dL (7-18)
[2025-06-08 23:21] LABS: GLUCOMETER DEV NAME(LOC) ICUN.6; GLUCOSE,POINT OF CARE 171 MG/DL (70-110)
[2025-06-09] VITALS (19 sets, daily range): BP systolic 107–154; BP diastolic 46–66; PULSE 68–112; RESP 6–26; TEMP 95.1–97; O2SAT 6–100
[2025-06-09 00:41] LABS: CALCIUM, TOTAL 7.7 mg/dL (8.8-10.5); CREATININE 1.42 mg/dL (0.60-1.30); GLOMERULAR FILTR. RATE CALC 48.0 mL/min (>60); GLUCOSE,RANDOM 207.0 mg/dL (70-110); SODIUM SERUM 139.0 mmol/L (136-145); UREA NITROGEN, BLOOD 31.0 mg/dL (7-18)
[2025-06-09 00:45] LABS: PHOSPHORUS 4.2 mg/dL (2.5-4.9)
[2025-06-09 04:11] LABS: GLUCOMETER DEV NAME(LOC) ICU.S7; GLUCOSE,POINT OF CARE 192 MG/DL (70-110)
[2025-06-09 07:11] LABS: PLATELET COUNT (AUTO) 51 K/uL (150-450); RED BLOOD CELL COUNT(AUTO) 3.82 MIL/uL (4.50-5.90); RED CELL DISTRIBUTION WIDTH 15.0 % (11.5-14.5)
[2025-06-09 07:14] LABS: ASPARTATE AMINOTRANSFERASE 51.0 U/L (15-37); CALCIUM, TOTAL 7.8 mg/dL (8.8-10.5); CREATININE 1.53 mg/dL (0.60-1.30); GLOMERULAR FILTR. RATE CALC 44.0 mL/min (>60); GLUCOSE,RANDOM 189.0 mg/dL (70-110); SODIUM SERUM 133.0 mmol/L (136-145); TOTAL PROTEIN, SERUM 5.7 g/dL (6.4-8.2); UREA NITROGEN, BLOOD 33.0 mg/dL (7-18)
[2025-06-09 07:24] LABS: WHITE BLOOD COUNT (AUTO) 31.9 K/uL (4.5-11.0)
[2025-06-09 07:28] LABS: BAND NEUTROPHILS % (MANUAL) 14 % (0-5); LYMPHOCYTES % (MANUAL) 3 % (22-44); METAMYELOCYTES % 6 % (0-0); MONOCYTES % (MANUAL) 3 % (2-9); SEGMENTED NEUTROPHILS % 74 % (40-70)
[2025-06-09 07:56] LABS: GLUCOMETER DEV NAME(LOC) ICU.S7; GLUCOSE,POINT OF CARE 183 MG/DL (70-110)
[2025-06-09] MEDS: VANCOMYCIN 1GM/WATER(PEG/NADA) 200 ML IV ONE (08:01)
[2025-06-09 08:21] LABS: PHOSPHORUS 3.7 mg/dL (2.5-4.9)
[2025-06-09 09:09] LABS: ABG BASE EXCESS -11.6 mmol/L (-2.0-3.0); ABG CARBOXYHEMOGLOBIN 0.3 % (0.5-1.5); ABG HCO3 16.1 mmol/L (21.0-28.0); ABG METHEMOGLOBIN 0.0 % (0.0-1.5); ABG OXYGEN CONTENT 15.9 mL/dL (15.0-23.0); ABG OXYGEN SATURATION 98.2 % (94.0-98.0); ABG OXYHEMOGLOBIN 97.9 % (94.0-98.0); ABG PCO2 31 mmHg (32.0-48.0); ABG PH 7.297 (7.350-7.450); ABG TOTAL HEMOGLOBIN 11.4 G/dL (13.5-17.5); FRACTIONATED INSPIRED OXYGEN 40.0 % (21-100.0); PO2, ARTERIAL BG 118.5 mmHg (83.0-108.0); SOURCE, BLOOD GAS ARTERIAL; TEMPERATURE, FAHRENHEIT, BG 95.5 FAHREN (96.0-98.6)
[2025-06-09 09:10] LABS: ABG A-A DIFF O2 132.5 mmHg (10-20.0); O2 DEVICE,BLOOD GAS VENTILATOR (ROOM AIR); PATIENT RATE, BG 26.0 min.; PEEP,BG 5 cm H2O; SET RATE, BG 26.0 min.; SITE, BLOOD GAS ARTERIAL LINE; VT, ABG 480 ml
[2025-06-09 13:32] LABS: ABG BASE EXCESS -13.0 mmol/L (-2.0-3.0); ABG CARBOXYHEMOGLOBIN 0.3 % (0.5-1.5); ABG HCO3 15.2 mmol/L (21.0-28.0); ABG METHEMOGLOBIN 0.2 % (0.0-1.5); ABG OXYGEN CONTENT 15.5 mL/dL (15.0-23.0); ABG OXYGEN SATURATION 97.9 % (94.0-98.0); ABG OXYHEMOGLOBIN 97.4 % (94.0-98.0); ABG PCO2 32 mmHg (32.0-48.0); ABG PH 7.258 (7.350-7.450); ABG TOTAL HEMOGLOBIN 11.2 G/dL (13.5-17.5); FRACTIONATED INSPIRED OXYGEN 40.0 % (21-100.0); PO2, ARTERIAL BG 108.5 mmHg (83.0-108.0); SOURCE, BLOOD GAS ARTERIAL; TEMPERATURE, FAHRENHEIT, BG 98.6 FAHREN (96.0-98.6)
[2025-06-09 13:34] LABS: SITE, BLOOD GAS ARTERIAL LINE
[2025-06-09 13:35] LABS: ABG A-A DIFF O2 139.4 mmHg (10-20.0); O2 DEVICE,BLOOD GAS VENTILATOR (ROOM AIR); PATIENT RATE, BG 26.0 min.; PEEP,BG 5 cm H2O; SET RATE, BG 26.0 min.; VT, ABG 480 ml
[2025-06-09 16:01] LABS: GLUCOMETER DEV NAME(LOC) ICUN.6; GLUCOSE,POINT OF CARE 185 MG/DL (70-110)
[2025-06-09] MEDS ORDERED: SODIUM CHLORIDE 0.9% 250 ML IV ONE (16:05)
[2025-06-09] MEDS ORDERED: SODIUM CHLORIDE 0.9% 1,000 ML ONE (20:15)
[2025-06-09 20:56] LABS: GLUCOMETER DEV NAME(LOC) ICU.S7; GLUCOSE,POINT OF CARE 193 MG/DL (70-110)
[2025-06-09] MEDS: AMINO ACIDS/PROTEIN HYDROLYS 30 ML LIQUID TUBE GT SCH (21:00)
[2025-06-09] MEDS ORDERED: MIDAZOLAM HCL 100 MG in SODIUM CHLORIDE 0.9% 180 ML IV PRN (21:15)
[2025-06-09 21:21] LABS: RED BLOOD CELL COUNT(AUTO) 3.81 MIL/uL (4.50-5.90); RED CELL DISTRIBUTION WIDTH 14.9 % (11.5-14.5); WHITE BLOOD COUNT (AUTO) 29.4 K/uL (4.5-11.0)
[2025-06-09] MEDS: DIGOXIN 250 MCG/ML 2 ML AMP IVP ONE (21:23)
[2025-06-09 21:32] LABS: CALCIUM, TOTAL 7.7 mg/dL (8.8-10.5); CREATININE 1.41 mg/dL (0.60-1.30); GLOMERULAR FILTR. RATE CALC 48.0 mL/min (>60); GLUCOSE,RANDOM 237.0 mg/dL (70-110); SODIUM SERUM 133.0 mmol/L (136-145); UREA NITROGEN, BLOOD 37.0 mg/dL (7-18)
[2025-06-09 21:48] LABS: BAND NEUTROPHILS % (MANUAL) 18 % (0-5); LYMPHOCYTES % (MANUAL) 12 % (22-44); MONOCYTES % (MANUAL) 9 % (2-9); SEGMENTED NEUTROPHILS % 61 % (40-70)
[2025-06-09 21:52] LABS: RBC MORPHOLOGY COMMENT ABNORMAL RBC MORPH
[2025-06-09 22:00] LABS: PLATELET COUNT (AUTO) 44 K/uL (150-450)
[2025-06-10] VITALS (15 sets, daily range): BP systolic 97–161; BP diastolic 48–74; PULSE 69–116; RESP 22–26; TEMP 96.7–99.9; O2SAT 95–100
[2025-06-10 00:46] LABS: GLUCOMETER DEV NAME(LOC) ICU.S7; GLUCOSE,POINT OF CARE 184 MG/DL (70-110)
[2025-06-10] MEDS ORDERED: SODIUM CHLORIDE 0.9% 500 ML IV ONE (01:47)
[2025-06-10] MEDS ORDERED: SODIUM CHLORIDE 0.9% 250 ML IV ONE ×2 (01:47→23:35)
[2025-06-10 06:05] LABS: CALCIUM, TOTAL 7.8 mg/dL (8.8-10.5); CREATININE 1.13 mg/dL (0.60-1.30); GLOMERULAR FILTR. RATE CALC > 60 mL/min (>60); GLUCOSE,RANDOM 200 mg/dL (70-110); SODIUM SERUM 135 mmol/L (136-145); UREA NITROGEN, BLOOD 33 mg/dL (7-18)
[2025-06-10 06:53] LABS: PLATELET COUNT (AUTO) 43 K/uL (150-450); RED BLOOD CELL COUNT(AUTO) 3.76 MIL/uL (4.50-5.90); RED CELL DISTRIBUTION WIDTH 14.9 % (11.5-14.5); WHITE BLOOD COUNT (AUTO) 24.6 K/uL (4.5-11.0)
[2025-06-10 07:26] LABS: PHOSPHORUS 2.6 mg/dL (2.5-4.9)
[2025-06-10 08:21] LABS: GLUCOMETER DEV NAME(LOC) ICU.S7; GLUCOSE,POINT OF CARE 175 MG/DL (70-110)
[2025-06-10] MEDS: VANCOMYCIN 1GM/WATER(PEG/NADA) 200 ML IV ONE (08:35)
[2025-06-10 09:44] LABS: BAND NEUTROPHILS % (MANUAL) 32 % (0-5); LYMPHOCYTES % (MANUAL) 20 % (22-44); METAMYELOCYTES % 10 % (0-0); MONOCYTES % (MANUAL) 3 % (2-9); SEGMENTED NEUTROPHILS % 35 % (40-70)
[2025-06-10 09:45] LABS: RBC MORPHOLOGY COMMENT ABNORMAL R
[2025-06-10 09:55] LABS: PATHOLOGY REVIEW, DIFF YES
[2025-06-10] MEDS: DEXMEDETOMIDINE 400 MCG/NS 100 ML IV PRN (15:59)
[2025-06-10 16:22] LABS: ABG BASE EXCESS -8.2 mmol/L (-2.0-3.0); ABG CARBOXYHEMOGLOBIN 0.5 % (0.5-1.5); ABG HCO3 18.6 mmol/L (21.0-28.0); ABG METHEMOGLOBIN 0.3 % (0.0-1.5); ABG OXYGEN CONTENT 15.7 mL/dL (15.0-23.0); ABG OXYGEN SATURATION 96.4 % (94.0-98.0); ABG OXYHEMOGLOBIN 95.6 % (94.0-98.0); ABG PCO2 32 mmHg (32.0-48.0); ABG PH 7.351 (7.350-7.450); ABG TOTAL HEMOGLOBIN 11.6 G/dL (13.5-17.5); FRACTIONATED INSPIRED OXYGEN 30.0 % (21-100.0); PO2, ARTERIAL BG 87.5 mmHg (83.0-108.0); SOURCE, BLOOD GAS ARTERIAL; TEMPERATURE, FAHRENHEIT, BG 98.6 FAHREN (96.0-98.6)
[2025-06-10 16:25] LABS: ABG A-A DIFF O2 88.6 mmHg (10-20.0); O2 DEVICE,BLOOD GAS VENTILATOR (ROOM AIR); PATIENT RATE, BG 26.0 min.; PEEP,BG 5 cm H2O; SET RATE, BG 26.0 min.; SITE, BLOOD GAS ARTERIAL LINE; VT, ABG 480 ml
[2025-06-10 17:26] LABS: GLUCOMETER DEV NAME(LOC) ICUN.6; GLUCOSE,POINT OF CARE 174 MG/DL (70-110)
[2025-06-10] MEDS: HEPARIN SODIUM,PORCINE 1,000 UNITS/ML VIAL IVCATH PRN (17:33)
[2025-06-10 19:11] LABS: GLUCOMETER DEV NAME(LOC) ICUN.6; GLUCOSE,POINT OF CARE 212 MG/DL (70-110)
[2025-06-10] MEDS: MIDODRINE HCL 5 MG TABLET PO SCH (21:24)
[2025-06-11] VITALS (22 sets, daily range): BP systolic 107–177; BP diastolic 51–77; PULSE 61–88; RESP 26–28; TEMP 98.5–101.2; O2SAT 90–100
[2025-06-11 02:31] LABS: GLUCOMETER DEV NAME(LOC) ICUN.6; GLUCOSE,POINT OF CARE 259 MG/DL (70-110)
[2025-06-11 06:22] LABS: PLATELET COUNT (AUTO) 49 K/uL (150-450); RED BLOOD CELL COUNT(AUTO) 3.62 MIL/uL (4.50-5.90); RED CELL DISTRIBUTION WIDTH 14.9 % (11.5-14.5); WHITE BLOOD COUNT (AUTO) 15.5 K/uL (4.5-11.0)
[2025-06-11 06:35] LABS: CALCIUM, TOTAL 7.5 mg/dL (8.8-10.5); CREATININE 1.49 mg/dL (0.60-1.30); GLOMERULAR FILTR. RATE CALC 45.0 mL/min (>60); GLUCOSE,RANDOM 308.0 mg/dL (70-110); PHOSPHORUS 3.3 mg/dL (2.5-4.9); SODIUM SERUM 135.0 mmol/L (136-145); TOTAL PROTEIN, SERUM 5.4 g/dL (6.4-8.2); UREA NITROGEN, BLOOD 54.0 mg/dL (7-18)
[2025-06-11 07:20] LABS: ASPARTATE AMINOTRANSFERASE 16.0 U/L (15-37)
[2025-06-11 08:14] LABS: BAND NEUTROPHILS % (MANUAL) 12 % (0-5); EOSINOPHILS % (MANUAL) 1 % (1-6); LYMPHOCYTES % (MANUAL) 13 % (22-44); MONOCYTES % (MANUAL) 2 % (2-9); RBC MORPHOLOGY COMMENT NORMAL RBC MORPH; SEGMENTED NEUTROPHILS % 72 % (40-70)
[2025-06-11] MEDS ORDERED: HEPARIN SODIUM,PORCINE 1,000 UNITS/ML VIAL IVP ONE (09:18)
[2025-06-11] MEDS: VANCOMYCIN 750 MG/WATER(PEG) 150 ML IV ONE (11:21)
[2025-06-11 12:07] LABS: S PNEUMO SOURCE Urine; STREP PNEUMONIAE AG URINE Negative (Negative)
[2025-06-11 13:07] LABS: LEGIONELLA PNEUMO AG URINE Negative (Negative)
[2025-06-11 13:36] LABS: GLUCOMETER DEV NAME(LOC) ICU.S7; GLUCOSE,POINT OF CARE 286 MG/DL (70-110)
[2025-06-11] MEDS ORDERED: SODIUM CHLORIDE 0.9% 2,000 ML ONE (16:01)
[2025-06-11] MEDS: HYDROCORTISONE SOD SUCC 100 MG/2 ML VIAL IVP SCH (17:48)
[2025-06-11 18:15] LABS: GLUCOMETER DEV NAME(LOC) ICU.S7; GLUCOSE,POINT OF CARE 217 MG/DL (70-110)
[2025-06-11 18:15] LABS: GLUCOMETER DEV NAME(LOC) ICUN.6; GLUCOSE,POINT OF CARE 267 MG/DL (70-110)
[2025-06-11] MEDS: HEPARIN SODIUM,PORCINE 1,000 UNITS/ML VIAL IVCATH ONE ×2 (20:06)
[2025-06-11] MEDS: AZTREONAM 1 GM in DEXTROSE 5%-WATER 50 ML IV SCH (23:23)
[2025-06-12] VITALS (15 sets, daily range): BP systolic 123–161; BP diastolic 52–69; PULSE 56–88; RESP 26–31; TEMP 98.2–99.8; O2SAT 91–96
[2025-06-12 01:21] LABS: GLUCOMETER DEV NAME(LOC) ICUN.6; GLUCOSE,POINT OF CARE 245 MG/DL (70-110)
[2025-06-12 05:56] LABS: PLATELET COUNT (AUTO) 77 K/uL (150-450); RED BLOOD CELL COUNT(AUTO) 3.74 MIL/uL (4.50-5.90); RED CELL DISTRIBUTION WIDTH 14.8 % (11.5-14.5); WHITE BLOOD COUNT (AUTO) 14.4 K/uL (4.5-11.0)
[2025-06-12 05:56] LABS: GLUCOMETER DEV NAME(LOC) ICUN.6; GLUCOSE,POINT OF CARE 279 MG/DL (70-110)
[2025-06-12 06:35] LABS: CALCIUM, TOTAL 7.5 mg/dL (8.8-10.5); CREATININE 1.11 mg/dL (0.60-1.30); GLOMERULAR FILTR. RATE CALC > 60 mL/min (>60); GLUCOSE,RANDOM 292 mg/dL (70-110); SODIUM SERUM 134 mmol/L (136-145); UREA NITROGEN, BLOOD 39 mg/dL (7-18)
[2025-06-12 06:43] LABS: PHOSPHORUS 2.5 mg/dL (2.5-4.9)
[2025-06-12 06:46] LABS: APPEARANCE,URINE CLEAR (CLEAR); GLUCOSE, URINE (UA) >=1000 mg/dL (NEGATIVE); LEUKOCYTE ESTERASE ,URINE NEGATIVE (NEGATIVE); NITRATE,URINE NEGATIVE (NEGATIVE); OCCULT BLOOD,URINE NEGATIVE (NEGATIVE); SPECIFIC GRAVITIY, URINE 1.019 (1.003-1.030)
[2025-06-12] MEDS: POTASSIUM CHL 10 MEQ/WATER 50 ML IV SCH (08:40)
[2025-06-12] MEDS: POTASSIUM CHLORIDE 10% 40 MEQ/30 ML LIQUID UDCUP GT ONE (08:55)
[2025-06-12] MEDS ORDERED: SODIUM CHLORIDE 0.9% 250 ML IV ONE ×2 (12:15→17:17)
[2025-06-12] MEDS: AZTREONAM 1 GM in DEXTROSE 5%-WATER 50 ML IV SCH (12:20)
[2025-06-12] MEDS: VANCOMYCIN 1GM/WATER(PEG/NADA) 200 ML IV ONE (13:20)
[2025-06-12] MEDS: LEVOFLOXACIN 750 MG/D5% WATER 150 ML IV SCH (13:40)
[2025-06-12 14:26] LABS: GLUCOMETER DEV NAME(LOC) ICUN.6; GLUCOSE,POINT OF CARE 303 MG/DL (70-110)
[2025-06-12 20:35] LABS: GLUCOMETER DEV NAME(LOC) ICU.S7; GLUCOSE,POINT OF CARE 253 MG/DL (70-110)
[2025-06-13] VITALS (14 sets, daily range): BP systolic 88–160; BP diastolic 47–67; PULSE 64–96; RESP 26–35; TEMP 98.9–100; O2SAT 93–100
[2025-06-13 01:51] LABS: GLUCOMETER DEV NAME(LOC) ICUN.6; GLUCOSE,POINT OF CARE 246 MG/DL (70-110)
[2025-06-13 05:33] LABS: PLATELET COUNT (AUTO) 113 K/uL (150-450); RED BLOOD CELL COUNT(AUTO) 3.80 MIL/uL (4.50-5.90); RED CELL DISTRIBUTION WIDTH 15.0 % (11.5-14.5); WHITE BLOOD COUNT (AUTO) 16.1 K/uL (4.5-11.0)
[2025-06-13 05:49] LABS: ASPARTATE AMINOTRANSFERASE 22 U/L (15-37); CALCIUM, TOTAL 7.6 mg/dL (8.8-10.5); CREATININE 1.11 mg/dL (0.60-1.30); GLOMERULAR FILTR. RATE CALC > 60 mL/min (>60); GLUCOSE,RANDOM 244 mg/dL (70-110); SODIUM SERUM 138 mmol/L (136-145); TOTAL PROTEIN, SERUM 5.3 g/dL (6.4-8.2); UREA NITROGEN, BLOOD 40 mg/dL (7-18)
[2025-06-13] MEDS: HYDROCORTISONE SOD SUCC 100 MG/2 ML VIAL IVP SCH (08:16)
[2025-06-13] MEDS ORDERED: NOREPINEPHRINE 8 MG/0.9 % NACL 250 ML IV PRN (09:15)
[2025-06-13] MEDS: SODIUM CHLORIDE 0.9% 250 ML IV ONE (09:18)
[2025-06-13 09:21] LABS: GLUCOMETER DEV NAME(LOC) ICUN.6; GLUCOSE,POINT OF CARE 240 MG/DL (70-110)
[2025-06-13] MEDS: VANCOMYCIN 1GM/WATER(PEG/NADA) 200 ML IV ONE (11:28)
[2025-06-13] MEDS ORDERED: GADOTERATE MEGLUMINE 10 MMOL/20 ML VIAL IVP ONE (13:38)
[2025-06-13] MEDS: POTASSIUM CHLORIDE 10% 40 MEQ/30 ML LIQUID UDCUP GT ONE ×2 (16:26→17:34)
[2025-06-13 17:40] LABS: GLUCOMETER DEV NAME(LOC) ICU.S7; GLUCOSE,POINT OF CARE 323 MG/DL (70-110)
[2025-06-13 18:06] LABS: GLUCOMETER DEV NAME(LOC) ICUN.6; GLUCOSE,POINT OF CARE 284 MG/DL (70-110)
[2025-06-13] MEDS: ALBUTEROL SULFATE 2.5 MG/0.5 ML NEB SOLUTION NEB PRN (20:22)
[2025-06-13] MEDS: IPRATROPIUM BROMIDE 0.5 MG/2.5 ML NEB SOLUTION NEB PRN (20:22)
[2025-06-14] VITALS (12 sets, daily range): BP systolic 78–160; BP diastolic 52–65; PULSE 61–87; RESP 23–29; TEMP 99.9–100.6; O2SAT 96–98
[2025-06-14] MEDS ORDERED: SODIUM CHLORIDE 0.9% 250 ML IV ONE (03:46)
[2025-06-14 05:40] LABS: PLATELET COUNT (AUTO) 157 K/uL (150-450); RED BLOOD CELL COUNT(AUTO) 3.73 MIL/uL (4.50-5.90); RED CELL DISTRIBUTION WIDTH 15.3 % (11.5-14.5); WHITE BLOOD COUNT (AUTO) 14.5 K/uL (4.5-11.0)
[2025-06-14 05:47] LABS: CALCIUM, TOTAL 7.7 mg/dL (8.8-10.5); CREATININE 1.23 mg/dL (0.60-1.30); GLOMERULAR FILTR. RATE CALC 57.0 mL/min (>60); GLUCOSE,RANDOM 342.0 mg/dL (70-110); SODIUM SERUM 139.0 mmol/L (136-145); UREA NITROGEN, BLOOD 50.0 mg/dL (7-18)
[2025-06-14 06:06] LABS: GLUCOMETER DEV NAME(LOC) ICU.S7; GLUCOSE,POINT OF CARE 298 MG/DL (70-110)
[2025-06-14 06:41] LABS: GLUCOMETER DEV NAME(LOC) ICUN.6; GLUCOSE,POINT OF CARE 307 MG/DL (70-110)
[2025-06-14] MEDS: VANCOMYCIN 1GM/WATER(PEG/NADA) 200 ML IV SCH (08:06)
[2025-06-14 10:39] LABS: ABG BASE EXCESS -7.9 mmol/L (-2.0-3.0); ABG CARBOXYHEMOGLOBIN 0.2 % (0.5-1.5); ABG HCO3 19.0 mmol/L (21.0-28.0); ABG METHEMOGLOBIN 0.0 % (0.0-1.5); ABG OXYGEN CONTENT 15.3 mL/dL (15.0-23.0); ABG OXYGEN SATURATION 96.8 % (94.0-98.0); ABG OXYHEMOGLOBIN 96.6 % (94.0-98.0); ABG PCO2 29 mmHg (32.0-48.0); ABG PH 7.392 (7.350-7.450); ABG TOTAL HEMOGLOBIN 11.2 G/dL (13.5-17.5); FRACTIONATED INSPIRED OXYGEN 30.0 % (21-100.0); PO2, ARTERIAL BG 91.5 mmHg (83.0-108.0); SOURCE, BLOOD GAS ARTERIAL; TEMPERATURE, FAHRENHEIT, BG 100.1 FAHREN (96.0-98.6)
[2025-06-14 10:40] LABS: ALLEN TEST, BLOOD GAS Positive; SITE, BLOOD GAS ARTERIAL LINE
[2025-06-14 10:41] LABS: O2 DEVICE,BLOOD GAS VENTILATOR (ROOM AIR); PEEP,BG 5 cm H2O; VENT MODE, BG SPONTANEOUS (ROOM AIR)
[2025-06-14 10:42] LABS: PRESSURE SUPPORT, BG 8 cm H2O
[2025-06-14 11:51] LABS: GLUCOMETER DEV NAME(LOC) ICUN.6; GLUCOSE,POINT OF CARE 333 MG/DL (70-110)
[2025-06-14 18:31] LABS: GLUCOMETER DEV NAME(LOC) ICU.S7; GLUCOSE,POINT OF CARE 297 MG/DL (70-110)
[2025-06-14 23:55] LABS: GLUCOMETER DEV NAME(LOC) ICU.S7; GLUCOSE,POINT OF CARE 301 MG/DL (70-110)
[2025-06-15] VITALS (14 sets, daily range): BP systolic 92–137; BP diastolic 51–73; PULSE 59–86; RESP 25–35; TEMP 99.3–101.2; O2SAT 94–99
[2025-06-15 06:36] LABS: GLUCOMETER DEV NAME(LOC) ICU.S7; GLUCOSE,POINT OF CARE 331 MG/DL (70-110)
[2025-06-15 07:12] LABS: CALCIUM, TOTAL 7.7 mg/dL (8.8-10.5); CREATININE 1.27 mg/dL (0.60-1.30); GLOMERULAR FILTR. RATE CALC 55.0 mL/min (>60); GLUCOSE,RANDOM 329.0 mg/dL (70-110); SODIUM SERUM 141.0 mmol/L (136-145); UREA NITROGEN, BLOOD 51.0 mg/dL (7-18)
[2025-06-15 09:36] LABS: PLATELET COUNT (AUTO) 208 K/uL (150-450); RED BLOOD CELL COUNT(AUTO) 3.62 MIL/uL (4.50-5.90); RED CELL DISTRIBUTION WIDTH 15.7 % (11.5-14.5); WHITE BLOOD COUNT (AUTO) 13.6 K/uL (4.5-11.0)
[2025-06-15 12:24] LABS: ABG BASE EXCESS -5.8 mmol/L (-2.0-3.0); ABG CARBOXYHEMOGLOBIN 0.6 % (0.5-1.5); ABG HCO3 20.1 mmol/L (21.0-28.0); ABG METHEMOGLOBIN 0.3 % (0.0-1.5); ABG OXYGEN CONTENT 15.8 mL/dL (15.0-23.0); ABG OXYGEN SATURATION 93.3 % (94.0-98.0); ABG OXYHEMOGLOBIN 92.5 % (94.0-98.0); ABG PCO2 37 mmHg (32.0-48.0); ABG PH 7.346 (7.350-7.450); ABG TOTAL HEMOGLOBIN 12.1 G/dL (13.5-17.5); FRACTIONATED INSPIRED OXYGEN 30.0 % (21-100.0); PO2, ARTERIAL BG 73.6 mmHg (83.0-108.0); SOURCE, BLOOD GAS ARTERIAL; TEMPERATURE, FAHRENHEIT, BG 98.9 FAHREN (96.0-98.6)
[2025-06-15 12:27] LABS: ABG A-A DIFF O2 96.4 mmHg (10-20.0); ALLEN TEST, BLOOD GAS Positive; O2 DEVICE,BLOOD GAS VENTILATOR (ROOM AIR); SITE, BLOOD GAS LFT RADIAL
[2025-06-15 12:28] LABS: CPAP, BG 0 cm H2O; PATIENT RATE, BG 30.0 min.; PRESSURE SUPPORT, BG 8 cm H2O; SPONTANEOUS VT, BG 430 ml; VENT MODE, BG CPAP (ROOM AIR)
[2025-06-15 12:36] LABS: GLUCOMETER DEV NAME(LOC) ICUN.6; GLUCOSE,POINT OF CARE 274 MG/DL (70-110)
[2025-06-15 18:06] LABS: GLUCOMETER DEV NAME(LOC) ICUN.6; GLUCOSE,POINT OF CARE 298 MG/DL (70-110)
[2025-06-16] VITALS (9 sets, daily range): BP systolic 99–118; BP diastolic 59–70; PULSE 59–88; RESP 26; TEMP 99–101; O2SAT 96–99
[2025-06-16 00:56] LABS: GLUCOMETER DEV NAME(LOC) ICU.S7; GLUCOSE,POINT OF CARE 292 MG/DL (70-110)
[2025-06-16 05:53] LABS: ASPARTATE AMINOTRANSFERASE 20.0 U/L (15-37); CALCIUM, TOTAL 8.0 mg/dL (8.8-10.5); CREATININE 1.5 mg/dL (0.60-1.30); GLOMERULAR FILTR. RATE CALC 45.0 mL/min (>60); GLUCOSE,RANDOM 363.0 mg/dL (70-110); SODIUM SERUM 141.0 mmol/L (136-145); TOTAL PROTEIN, SERUM 5.4 g/dL (6.4-8.2); UREA NITROGEN, BLOOD 61.0 mg/dL (7-18)
[2025-06-16 06:10] LABS: PHOSPHORUS 3.5 mg/dL (2.5-4.9)
[2025-06-16 07:20] LABS: GLUCOMETER DEV NAME(LOC) ICU.S7; GLUCOSE,POINT OF CARE 370 MG/DL (70-110)
[2025-06-16 13:21] LABS: GLUCOMETER DEV NAME(LOC) ICUN.6; GLUCOSE,POINT OF CARE 332 MG/DL (70-110)
[2025-06-17] MEDS ORDERED: LEVOFLOXACIN 750 MG/D5% WATER 150 ML IV SCH (13:00)
== END 2025-06-16 14:35 | disposition short-term general hospital (02) | DRG 870 ==
LOC: EMS 02:30 → EDH 06:24 → ICU 11:50
PROVIDERS: ADMIT Hospitalist; ATTEND Hospitalist
PROC: 5A09357 Assistance with Respiratory Ventilation, Less than 24 Consecutive Hours, Continuous Positive Airway Pressure (ICD-10-PCS; principal; 2025-06-06)
PROC: 5A1955Z Respiratory Ventilation, Greater than 96 Consecutive Hours (ICD-10-PCS; 2025-06-06)
PROC: 0BH17EZ Insertion of Endotracheal Airway into Trachea, Via Natural or Artificial Opening (ICD-10-PCS; 2025-06-06)
PROC: 04HY32Z Insertion of Monitoring Device into Lower Artery, Percutaneous Approach (ICD-10-PCS; 2025-06-06)
PROC: 06HY33Z Insertion of Infusion Device into Lower Vein, Percutaneous Approach (ICD-10-PCS; 2025-06-06)
PROC: B54BZZA Ultrasonography of Right Lower Extremity Veins, Guidance (ICD-10-PCS; 2025-06-06)
PROC: 5A1D70Z Performance of Urinary Filtration, Intermittent, Less than 6 Hours Per Day (ICD-10-PCS; 2025-06-06)
PROC: 05HM33Z Insertion of Infusion Device into Right Internal Jugular Vein, Percutaneous Approach (ICD-10-PCS; 2025-06-06)
PROC: B543ZZA Ultrasonography of Right Jugular Veins, Guidance (ICD-10-PCS; 2025-06-06)
PROC: 5A1D70Z Performance of Urinary Filtration, Intermittent, Less than 6 Hours Per Day (ICD-10-PCS; 2025-06-07)
PROC: 5A1D70Z Performance of Urinary Filtration, Intermittent, Less than 6 Hours Per Day (ICD-10-PCS; 2025-06-08)
PROC: 5A1D70Z Performance of Urinary Filtration, Intermittent, Less than 6 Hours Per Day (ICD-10-PCS; 2025-06-09)
PROC: 5A1D70Z Performance of Urinary Filtration, Intermittent, Less than 6 Hours Per Day (ICD-10-PCS; 2025-06-10)
PROC: 5A1D70Z Performance of Urinary Filtration, Intermittent, Less than 6 Hours Per Day (ICD-10-PCS; 2025-06-11)
PROC: 05H933Z Insertion of Infusion Device into Right Brachial Vein, Percutaneous Approach (ICD-10-PCS; 2025-06-14)
PROC: B54MZZA Ultrasonography of Right Upper Extremity Veins, Guidance (ICD-10-PCS; 2025-06-14)
DX: A41.9 Sepsis, unspecified organism (principal); R65.21 Severe sepsis with septic shock; J18.9 Pneumonia, unspecified organism; I63.9 Cerebral infarction, unspecified; J80 Acute respiratory distress syndrome; E87.1 Hypo-osmolality and hyponatremia; E87.20 Acidosis, unspecified; G93.40 Encephalopathy, unspecified; N17.9 Acute kidney failure, unspecified; K56.7 Ileus, unspecified; I13.0 Hypertensive heart and chronic kidney disease with heart failure and stage 1 through stage 4 chronic kidney disease, or unspecified chronic kidney disease; K80.00 Calculus of gallbladder with acute cholecystitis without obstruction; I50.22 Chronic systolic (congestive) heart failure; E11.22 Type 2 diabetes mellitus with diabetic chronic kidney disease; E11.65 Type 2 diabetes mellitus with hyperglycemia; E78.5 Hyperlipidemia, unspecified; F17.200 Nicotine dependence, unspecified, uncomplicated; E87.6 Hypokalemia; I25.10 Atherosclerotic heart disease of native coronary artery without angina pectoris; N18.31 Chronic kidney disease, stage 3a; D69.6 Thrombocytopenia, unspecified; E66.9 Obesity, unspecified; K21.9 Gastro-esophageal reflux disease without esophagitis; Z68.33 Body mass index [BMI] 33.0-33.9, adult; Z88.0 Allergy status to penicillin
CPT/HCPCS: 36245; 36569; 70551; 70552; 71045; 71250; 74018; 74176; 76705; 76770; 76937; 78226; 80048; 80053; 80076; 80202; 81001; 82550; 82805; 82962; 83605; 83690; 83735; 83880; 84100; 84132; 84145; 84484; 85025; 85379; 87040; 87070; 87081; 87340; 87449; 87899; 90935; 90947; 93005; 93306; 93970; 94002; 94003; 94640; 94660; 96361; 96365; 96366; 96367; 96375; 99291; G0238; J0696; J1160; J1644; J1720; J1956; J2270; J2370; J2470; J2704; J3010; J3480; J3490; J7030; J7040; J7050; J7060; 36415-L1; 36415-TC; 82803-TC; J7613